=== PATIENT | female | born 1955 | race Caucasian/White ===

== ENCOUNTER 2018-09-10 11:23 | Emergency (ER) | payer BC ==
[~2018-09-10] VITALS: Ht 170.2 cm; Wt 54.4 kg
[2018-09-10 12:53] VITALS: BP 112/74
== END 2018-09-10 13:17 | disposition home or self-care (01) ==
LOC: ER 11:33
DX: S93.492A Sprain of other ligament of left ankle, initial encounter (principal); S93.491A Sprain of other ligament of right ankle, initial encounter; W18.39XA Other fall on same level, initial encounter; Y93.31 Activity, mountain climbing, rock climbing and wall climbing; Y92.89 Other specified places as the place of occurrence of the external cause; Y99.8 Other external cause status; F90.9 Attention-deficit hyperactivity disorder, unspecified type
CPT/HCPCS: 73590-TC; 73610-TC